=== PATIENT | female | born 1960 | race Caucasian/White ===

== ENCOUNTER 2017-07-10 17:17 | Emergency (ER) | payer SELFPAY ==
[2017-07-10] MEDS ORDERED: Naproxen 500 MG TAB ONE (18:14)
[2017-07-10] MEDS ORDERED: HYDROcodone/Acetaminophen 10/325 mg Tablet ONE (18:14)
[2017-07-10] MEDS ORDERED: Diazepam 5 MG TAB ONE (18:14)
--- NOTE | 2017-07-10 18:36 | RAD ---
RADIOGRAPH SACRUM AND COCCYX 3 VIEWS: 07/10/17 HISTORY: 56-year-old female with acute, traumatic sacrococcygeal pain due to fall. FINDINGS: The sacral arcuate lines appear to be preserved. No grossly displaced sacral fracture is visualized. The coccyx is poorly visualized. IMPRESSION: 1. No fracture identified. 2. If symptoms do not improve in the next several days or weeks, a noncontrast MRI would be the most sensitive modality to evaluate for occult sacral fractures (assuming that there are no contraind ications to MRI). POS: NURYS
--- NOTE | 2017-07-10 18:38 | RAD ---
RADIOGRAPH LUMBAR SPINE 2 VIEWS: 07/10/17 HISTORY: 56-year-old female with traumatic low back pain due to fall. FINDINGS: Vertebral body heights are maintained. There is no evidence of fracture. IMPRESSION: No evidence of compression fracture. cachorro [] POS: NURYS
--- NOTE | 2017-07-10 18:39 | RAD ---
RADIOGRAPH LEFT KNEE 4 VIEWS: 07/10/17 HISTORY: 56-year-old female with traumatic left knee pain after fall. FINDINGS: No evidence of joint effusion. Mild to moderate osteophytosis at the medial and patellofemoral compar tments, with little or no joint space narrowing. Lateral compartment appears relatively normal. No fr acture or dislocation. IMPRESSION: 1. No fracture. 2. Mild osteoarthrosis. POS: NURYS
== END 2017-07-10 20:23 | disposition home or self-care (01) ==
LOC: MADERS 17:17
DX: S30.0XXA Contusion of lower back and pelvis, initial encounter (principal); X50.9XXA Other and unspecified overexertion or strenuous movements or postures, initial encounter
CPT/HCPCS: 72100; 72220

== ENCOUNTER 2021-05-09 14:25 | Emergency (ER) | payer SELFPAY ==
[2021-05-09] MEDS ORDERED: Ondansetron PF 4 MG/2 ML Vial ONE (15:33)
[2021-05-09] MEDS ORDERED: Sodium Chloride 0.9% 1,000 ML ONE (15:33)
[2021-05-09 15:37] LABS: #Lymphocytes 1.4 thou/uL (1.20-3.40); #Monocytes 0.4 thou/uL (0.11-0.59); %Basophils 0.4 % (0.0-1.0); %Eosinophils 0.3 % (0.0-10.0); %Monocytes 6.5 % (0.0-10.0); %Neutrophils 72.9 % (42.0-75.0); Hemoglobin 13.9 g/dL (12.0-16.0); Mean Corpuscular HGB CONC 31.5 g/dL (32.0-36.0); Mean Corpuscular Hemoglobin 27.6 pg (27.0-31.0); Mean Corpuscular Volume 87.7 fL (78.0-98.0); Mean Platelet Volume 7.2 fL (7.4-10.4); Platelet Count 437 thou/uL (130-400); Red Blood Cell (RBC) Count 5.04 mill/uL (4.20-5.40); White Blood Cell (WBC) Count 6.9 thou/uL (4.8-10.8)
[2021-05-09 15:51] LABS: Anion Gap 14 mmol/L (10-20); BUN (Urea Nitrogen) 11 mg/dL (9.8-20.1); Calc. Creatinine Clearance 0 mL/min (70-130); Calcium 9.7 mg/dL (7.8-10.44); Carbon Dioxide 24 mmol/L (22-29); Chloride 105 mmol/L (98-107); Glucose 107 mg/dL (70-105); Potassium 4.2 mmol/L (3.5-5.1); Sodium 139 mmol/L (136-145)
== END 2021-05-09 16:34 | disposition home or self-care (01) ==
LOC: MADERS 14:25
DX: U07.1 COVID-19 (principal)
CPT/HCPCS: 80048; 85025; 96374; J2405; J7050

== ENCOUNTER 2021-05-10 13:08 | Emergency (ER) | payer SELFPAY ==
[2021-05-10] MEDS ORDERED: Dextrose 5 % And 0.9 % NaCl 1,000 ML ONE (14:22)
[2021-05-10] MEDS ORDERED: Metoclopramide HCl 10 MG/2 ML VIAL ONE (14:22)
[2021-05-10 14:42] LABS: #Lymphocytes 1.3 thou/uL (1.20-3.40); #Monocytes 0.4 thou/uL (0.11-0.59); #Neutrophils 5.2 thou/uL (1.40-6.50); %Basophils 0.6 % (0.0-1.0); %Eosinophils 0.3 % (0.0-10.0); %Lymphocytes 18.2 % (21.0-51.0); %Monocytes 5.1 % (0.0-10.0); %Neutrophils 75.8 % (42.0-75.0); Hemoglobin 13.9 g/dL (12.0-16.0); Mean Corpuscular HGB CONC 31.2 g/dL (32.0-36.0); Mean Corpuscular Hemoglobin 27.6 pg (27.0-31.0); Mean Corpuscular Volume 88.5 fL (78.0-98.0); Mean Platelet Volume 7.6 fL (7.4-10.4); Platelet Count 415 thou/uL (130-400); RBC Distribution Width 12.3 % (11.5-14.5); Red Blood Cell (RBC) Count 5.04 mill/uL (4.20-5.40); White Blood Cell (WBC) Count 6.9 thou/uL (4.8-10.8)
[2021-05-10 15:00] LABS: ALT (SGPT) 30 U/L (8-55); AST (SGOT) 24 U/L (5-34); Albumin 3.9 g/dL (3.5-5.0); Alkaline Phosphatase 94 U/L (40-110); Anion Gap 13 mmol/L (10-20); BUN (Urea Nitrogen) 8 mg/dL (9.8-20.1); Bilirubin, Total 0.7 mg/dL (0.2-1.2); CK (CPK) 28 U/L (29-168); Calc. Creatinine Clearance 0 mL/min (70-130); Calcium 9.8 mg/dL (7.8-10.44); Carbon Dioxide 26 mmol/L (22-29); Chloride 106 mmol/L (98-107); Globulin 3.5 g/dL (2.4-3.5); Glucose 106 mg/dL (70-105); Potassium 4.4 mmol/L (3.5-5.1); Protein, Total 7.4 g/dL (6.0-8.3); Sodium 141 mmol/L (136-145)
[2021-05-10] MEDS ORDERED: Dexamethasone 10 MG/ML VIAL ONE (15:13)
[2021-05-10] MEDS ORDERED: Azithromycin 500 MG VIAL ONE (15:13)
[2021-05-10] MEDS ORDERED: Sodium Chloride 0.9% 250 ML 250 ML ONE (15:14)
[2021-05-10] MEDS ORDERED: cefTRIAXone\\ROCEPHIN 2 GM VIAL ONE (15:14)
[2021-05-10] MEDS ORDERED: Sodium Chloride 0.9% 100 ML ONE (15:14)
== END 2021-05-10 17:19 | disposition home or self-care (01) ==
LOC: MADERS 13:08
DX: U07.1 COVID-19 (principal); J12.82 Pneumonia due to coronavirus disease 2019; J20.8 Acute bronchitis due to other specified organisms; Z87.891 Personal history of nicotine dependence; Z79.899 Other long term (current) drug therapy
CPT/HCPCS: 71045; 80053; 82550; 83605; 84484; 85025; 96365; 96367; 96375; J0456; J0696; J1100; J2765; J3490; J7042; J7050